=== PATIENT | female | born 1990 | race Caucasian/White ===

== ENCOUNTER 2016-11-28 06:04 | Inpatient (IN) | payer OTHER ==
[~2016-11-28] VITALS: Ht 162.6 cm; Wt 64.0 kg
[2016-11-28] MEDS: BUPIVACAINE-MPF/EPI 0.5% 30 ML VIAL INJ ONE ×2 (07:35→08:21)
[2016-11-28] MEDS ORDERED: ONDANSETRON 4 MG/2 ML VIAL IVP PRN ×2 (07:35→09:05)
[2016-11-28] MEDS ORDERED: ACETAMINOPHEN/CODEINE 300/30MG 1 TAB PO PRN (07:35)
[2016-11-28] MEDS ORDERED: IBUPROFEN 800 MG TAB PO PRN (07:35)
[2016-11-28] MEDS ORDERED: GLYCOPYRROLATE 0.2 MG/ML VIAL IV ONE (07:59)
[2016-11-28] MEDS ORDERED: ROCURONIUM 50 MG/5 ML VIAL IV ONE (07:59)
[2016-11-28] MEDS ORDERED: KETOROLAC 30 MG/ML VIAL IVP ONE (07:59)
[2016-11-28] MEDS ORDERED: PHENYLEPHRINE 10 MG/ML VIAL IM ONE (07:59)
[2016-11-28] MEDS ORDERED: DESFLURANE 240 ML BTL INH ONE (07:59)
[2016-11-28] MEDS ORDERED: DEXAMETHASONE 4 MG/ML VIAL IVP ONE (07:59)
[2016-11-28] MEDS ORDERED: PROPOFOL 200 MG/20 ML VIAL IV ONE (07:59)
[2016-11-28] MEDS ORDERED: ONDANSETRON 4 MG/2 ML VIAL IVP ONE (07:59)
[2016-11-28] MEDS ORDERED: fentaNYL 0.05 MG/ML VIAL ONE (08:04)
[2016-11-28] MEDS ORDERED: HYDROmorphone PFS 2 MG/ML SYR ONE ×2 (08:04→09:04)
[2016-11-28] MEDS: HYDROmorphone 1 MG/ML AMP IVP PRN ×4 (09:00→09:30)
--- NOTE | 2016-11-28 09:50 | NUR ---
RECEIVED REPORT FROM WHITE LEAD FILTERER. PT IS AWAKE, A/O X 4, AMBULATORY. LEFT WRIST 20G IV PATENT AND INTACT. LOWER ABDOMEN SURGICAL INCISION S/P MYOMECTOMY COVERED WITH ABDOMINAL PAD. MINIMAL VAGINAL BLEEDING. LBM 11/27/16. NO S/S OF ACUTE CARDIAC/RESPIRATORY DISTRESS. VS STABLE. SAFETY MEASURES IN PLACE, CALL LIGHT WITHIN REACH. WILL INITIATE PLAN OF CARE AND CONTINUE TO MONITOR. PARENTS AT BEDSIDE.
[2016-11-28 10:37] VITALS: BP 116/61
[2016-11-28] MEDS: MORPHINE SULFATE 4 MG/ML SYR IM/IVP PRN ×3 (11:54→19:55)
--- NOTE | 2016-11-28 12:00 | NUR ---
PT IS RESTING WITH PARENTS. NO S/S OF ACUTE DISTRESS. CALL LIGHT WITHIN REACH, WILL CONTINUE TO MONITOR.
--- NOTE | 2016-11-28 13:09 | NUR ---
CM NOTE INITIAL REVIEW FAXED TO [facility] / FAX# [phone], ATTN: TYLER #[phone]
--- NOTE | 2016-11-28 13:45 | NUR ---
PT JUST CHANGED HER PAD SINCE BEING ADMITTED ONTO TO THE FLOOR. PT IS BLEEDING HEAVILY, PAD SATURATED. DR Emani BECKWITH MADE AWARE, ORDERS GIVEN AND CARRIED OUT. BP IS 96/59 HR 71 AND NAUSEATED. CALL LIGHT WITHIN REACH, WILL CONTINUE TO MONITOR.
[2016-11-28] MEDS ORDERED: METHYLERGONOVINE 0.2 MG/ML AMP IM SCH (14:49)
[2016-11-28] MEDS ORDERED: MISOPROSTOL 100 MCG TAB RC SCH (15:27)
[2016-11-28 16:00] VITALS: BP 116/62
--- NOTE | 2016-11-28 16:50 | NUR ---
PT CHANGED PAD AGAIN, MODERATELY SATURATED. ADMINISTERED METHERGINE, PT REFUSED CYTOTEC. PT MADE AWARE OF RISKS AND BENEFITS, PT VERBALIZED UNDERSTANDING. PT HAS NO S/S OF ACUTE DISTRESS, CALL LIGHT WITHIN REACH. WILL CONTINUE TO MONITOR.
--- NOTE | 2016-11-28 19:13 | NUR ---
ENDORSED REPORT TO SANFORIZING MACHINE OPERATOR JUAN CARLOS VALERIO. PT IS SLEEPING. NO S/S OF ACUTE DISTRESS OR DISCOMFORT. PT IN STABLE CONDITION.
--- NOTE | 2016-11-28 19:25 | NUR ---
RECEIVED REPORT FROM JUAN CARLOS BARON AT BEDSIDE. INITIAL ASSESSMENT COMPLETED. PT IS AAOX4 AND AMBULATORY. PT HAS IV TO LEFT WRIST 20G IV PATENT AND INTACT. PT HAS S/P LOWER ABDOMEN SURGICAL INCISION S/P MYOMECTOMY COVERED WITH ABDOMINAL PAD DRY AND INTACT. PT HAS MINIMAL VAGINAL BLEEDING IN PAD. ORIENTED PT TO ROOM AND SURROUNDINGS AND USE OF CALL LIGHT. EXPLAINED PLAN OF CARE TO PT AND SHE VERBALIZES UNDERSTANDING. CALL LIGHT WITHIN REACH. Addendum: 11/28/16 at 2009 by Dary Reyes RN PT HAS IV TO LEFT HAND G 20 SL; ASYMPTOMATIC, PATENT AND INTACT.
--- NOTE | 2016-11-28 19:53 | NUR ---
PT COMPLAINING OF ABDOMINAL PAIN 04/15. VS WITHIN NORMAL RANGE, WILL MEDICATE ORDERED.
--- NOTE | 2016-11-28 20:30 | NUR ---
PT SLEEPING AT THIS TIME, NO SIGNS OF DISTRESS NOTED, CALL LIGHT WITHIN REACH.
--- NOTE | 2016-11-28 23:35 | NUR ---
PT AMBULATED TO THE RESTROOM, PT TOLERATED IT WELL. PT BACK IN BED NOW RESTING COMFORTABLY, WILL CONTINUE TO MONITOR PT.
[2016-11-29] VITALS: BP 111/66
--- NOTE | 2016-11-29 01:43 | NUR ---
PT COMPLAINING OF PAIN 05/16. VS STABLE WILL MEDICATE ORDERED.
[2016-11-29] MEDS: MORPHINE SULFATE 4 MG/ML SYR IM/IVP PRN ×4 (01:45→15:17)
--- NOTE | 2016-11-29 03:35 | NUR ---
PT SLEEPING, NO SIGNS OF DISTRESS NOTED, WILL CONTINUE TO MONITOR PT.
--- NOTE | 2016-11-29 06:25 | NUR ---
PT COMPLAINING OF SHOULDER PAIN 05/16. VS STABLE, WILL MEDICATE ORDERED.
--- NOTE | 2016-11-29 07:05 | NUR ---
ENDORSED PT IN STABLE CONDITION TO JUAN CARLOS CASEY FOR CONTINUITY OF CARE.
--- NOTE | 2016-11-29 07:08 | NUR ---
PT RECEIVED FROM JUAN CARLOS VALERIO AWAKE AND LYING ON BED, WITH RELATIVE AT BEDSIDE, AAOX4, WITH IV ON LEFT HAND 20G ON SALINE LOCK, PATENT AND INTACT. WITH LOWER ABDOMINAL INCISION COVERED WITH DRY DRESSING, NO COMPLAINTS OF PAIN AT THIS TIME. NO S/S OF RESPIRATORY DISTRESS. DISCUSSED PLAN OF CARE, PT VERBALIZED UNDERSTANDING. CALL LIGHT WITHIN REACH, WILL CONTINUE TO MONITOR. Addendum: 11/29/16 at 1034 by Nithya Latham RN PT HAS SCANT AMOUNT OF LOCHIA RUBRA NOTED Addendum: 11/29/16 at 1928 by Nithya Latham RN WRONG DOCUMENTATION. PATIENT HAD SCANT AMOUNT OF BLOODY DISCHARGE ON PAD
[2016-11-29 08:00] VITALS: BP 106/62
--- NOTE | 2016-11-29 08:10 | NUR ---
BREAKFAST SERVED, PT HAS FAIR APPETITE. ALL NEEDS MET AT THIS TIME. CALL LIGHT WITHIN REACH, WILL CONTINUE TO MONITOR.
--- NOTE | 2016-11-29 08:22 | NUR ---
PATIENT HAS BEEN SCREENED AND CATEGORIZED LOW NUTRITION RISK. PATIENT WILL BE SEEN WITHIN 7 DAYS OF ADMISSION. 12/04/[address]
--- NOTE | 2016-11-29 09:59 | NUR ---
PT COMPLAINED OF PAIN ON SHOULDER, MORPHINE GIVEN. PATIENT WOULD LIKE TO KNOW TO WHY HER SHOULDERS HURT MORE THAN THE INCISION. PAGED DR. BECKWITH.
--- NOTE | 2016-11-29 12:15 | NUR ---
PT STATED HER SHOULDER IS HURTING BECAUSE SHE SLEPT ON THE WRONG SIDE. PT STATED SHE IS NOW FEELING OK. NO S/S OF DISTRESS, WITH RELATIVE AT BEDSIDE. CALL LIGHT WITHIN REACH, WILL CONTINUE TO MONITOR.
[2016-11-29] MEDS ORDERED: METHYLERGONOVINE 0.2 MG/ML AMP IM ONE (14:49)
--- NOTE | 2016-11-29 15:32 | NUR ---
PT AWAKE AND LYING ON BED, WITH RELATIVES AT BEDSIDE. NO SIGN OF DISTRESS NOTED. ALL NEEDS AT THIS TIME, WILL CONTINUE TO MONITOR.
[2016-11-29 16:00] VITALS: BP 105/65
--- NOTE | 2016-11-29 17:25 | NUR ---
DISCHARGE INSTRUCTIONS, ID WRISTBAND AND IV ACCESS REMOVED, CATHETER TIP INTACT. DISCHARGE INCISION PHOTOS TAKEN. COVERED WOUND WITH DRY DRESSING. WOUND CARE INSTRUCTIONS GIVEN, PT GIVEN 5 DAYS SUPPLY OF ABD PADS. PT LEFT UNIT IN A WHEELCHAIR ACCOMPANIED BY FAMILY AND WHEELED OUT IN STABLE CONDITION Addendum: 11/29/16 at 1927 by Nithya Latham RN PT HAD SCANT AMOUNT OF BLOOD ON PAD UPON DISCHARGE
--- NOTE | 2016-11-30 13:57 | NUR ---
[id number] INFORMATION FAXED TO [facility] [phone] INFORMING OF PT DISCHARGE YESTERDAY TO HOME.
== END 2016-11-29 17:25 | disposition home or self-care (01) | DRG 519 ==
LOC: MMU 06:04 → EDSTATUS 07:30 → MTU 10:28
PROVIDERS: ADMIT Obstetrics & Gynecology; ATTEND Obstetrics & Gynecology
PROC: 0UB90ZZ Excision of Uterus, Open Approach (ICD-10-PCS; principal; 2016-11-28 08:45)
DX: D25.9 Leiomyoma of uterus, unspecified (principal); G89.29 Other chronic pain